=== PATIENT | female | born 1935 | race Caucasian/White ===

== ENCOUNTER 2021-10-07 20:54 | Inpatient (IN) | payer MEDICARE ==
[2021-10-07] MEDS ORDERED: Ondansetron ODT 4 MG TAB PO PRN (21:18)
[2021-10-07] MEDS ORDERED: hydrALAZINE 20 MG/ML VIAL SLOW IVP PRN (21:18)
[2021-10-07] MEDS ORDERED: Dextrose 50% Abboject 50 ML SYRINGE SLOW IVP PRN (21:18)
[2021-10-07] MEDS ORDERED: Promethazine HCl 25 MG/ML VIAL IM PRN (21:18)
[2021-10-07] MEDS ORDERED: Dextrose 5% in Water 1,000 ML IV PRN (21:18)
[2021-10-07] MEDS ORDERED: Ondansetron PF 4 MG/2 ML Vial IVP PRN (21:18)
[2021-10-07] MEDS ORDERED: Ibuprofen 800 MG TAB PO PRN (21:25)
[2021-10-07] MEDS ORDERED: traMADol HCl 50 MG TAB PO PRN ×2 (21:25)
[2021-10-07] MEDS ORDERED: Cyclobenzaprine 10 MG TAB PO PRN (21:25)
[2021-10-07] MEDS: Acetaminophen 325 MG TAB PO SCH (23:03)
[2021-10-07] MEDS: Sodium Chloride 0.9% 1,000 ML IV SCH (23:04)
[2021-10-08] MEDS: Acetaminophen 325 MG TAB PO SCH ×4 (04:24→20:32)
[2021-10-08 04:57] LABS: #Eosinphils 0.1 thou/uL (0.0-0.7); #Lymphocytes 1.9 thou/uL (1.20-3.40); #Neutrophils 6.8 thou/uL (1.40-6.50); %Basophils 0.2 % (0.0-1.0); %Eosinophils 0.9 % (0.0-10.0); %Lymphocytes 19.5 % (21.0-51.0); %Neutrophils 69.5 % (42.0-75.0); Hemoglobin 10.8 g/dL (12.0-16.0); Mean Corpuscular HGB CONC 33.9 g/dL (32.0-36.0); Mean Corpuscular Hemoglobin 32.3 pg (27.0-31.0); Mean Corpuscular Volume 95.4 fL (78.0-98.0); Mean Platelet Volume 7.7 fL (7.4-10.4); Platelet Count 183 thou/uL (130-400); RBC Distribution Width 12.2 % (11.5-14.5); Red Blood Cell (RBC) Count 3.33 mill/uL (4.20-5.40); White Blood Cell (WBC) Count 9.8 thou/uL (4.8-10.8)
[2021-10-08 05:24] LABS: Anion Gap 10 mmol/L (10-20); BUN (Urea Nitrogen) 17 mg/dL (9.8-20.1); Calc. Creatinine Clearance 47 mL/min (70-130); Calcium 8.4 mg/dL (7.8-10.44); Carbon Dioxide 24 mmol/L (23-31); Chloride 107 mmol/L (98-107); Glucose 96 mg/dL (83-110); Potassium 4.1 mmol/L (3.5-5.1); Sodium 137 mmol/L (136-145)
[2021-10-08] MEDS: Levothyroxine Sodium 50 MCG TAB PO SCH (05:43)
[2021-10-08] MEDS: Morphine 4 MG/ML VIAL SLOW IVP PRN ×2 (06:30→17:48)
[2021-10-08] MEDS: Sodium Chloride 0.9% 1,000 ML IV SCH (06:30)
[2021-10-08] MEDS: Famotidine 20 MG TAB PO SCH ×2 (08:41→20:33)
[2021-10-08] MEDS ORDERED: Lisinopril 10 MG TAB PO SCH (09:00)
[2021-10-08] MEDS: Amlodipine 5 MG TAB PO SCH (09:00)
[2021-10-08] MEDS ORDERED: Clindamycin/D5W 900 MG in Premix Bag 1 BAG IVPB SCH (10:30)
[2021-10-08] MEDS ORDERED: Levofloxacin 500 mg/D5W 100 ml Premix Bag ONE (14:09)
[2021-10-08] MEDS ORDERED: Clindamycin/D5W 900 mg/50 ml Premix Bag ONE (14:09)
[2021-10-08] MEDS ORDERED: Fentanyl 100 MCG/2 ML VIAL ONE ×2 (14:39→16:25)
[2021-10-08] MEDS ORDERED: Dexamethasone 20 MG/5 ML VIAL ONE (15:08)
[2021-10-08] MEDS ORDERED: Ondansetron PF 4 MG/2 ML Vial ONE (15:08)
[2021-10-08] MEDS ORDERED: Rocuronium Bromide 10 MG/ML (10ML VIAL) ONE (15:08)
[2021-10-08] MEDS ORDERED: PROPOFOL 200 MG/20 ML VIAL ONE (15:08)
[2021-10-08] MEDS ORDERED: Glycopyrrolate 0.2 MG/ML 5 ML SYRINGE ONE (15:08)
[2021-10-08] MEDS ORDERED: Ondansetron HCl/PF 4 MG/2 ML Vial IVP PRN (16:11)
[2021-10-08] MEDS ORDERED: Promethazine HCl 25 MG/ML VIAL IVPB PRN (16:11)
[2021-10-08] MEDS ORDERED: Promethazine HCl 25 MG/ML VIAL IM PRN (16:11)
[2021-10-08] MEDS ORDERED: Ketorolac Tromethamine 30 MG/ML VIAL IVP PRN (16:11)
[2021-10-08] MEDS: Simvastatin 10 MG TAB PO SCH (20:33)
[2021-10-08] MEDS: Clindamycin/D5W 900 MG in Premix Bag 1 BAG IVPB SCH (20:43)
[2021-10-09] MEDS: Acetaminophen 325 MG TAB PO SCH ×4 (03:34→19:36)
[2021-10-09] MEDS: Levothyroxine Sodium 50 MCG TAB PO SCH (03:34)
[2021-10-09 04:53] LABS: #Lymphocytes 0.8 thou/uL (1.20-3.40); #Neutrophils 9.3 thou/uL (1.40-6.50); %Basophils 0.1 % (0.0-1.0); %Eosinophils 0.1 % (0.0-10.0); %Lymphocytes 7.4 % (21.0-51.0); %Monocytes 8.7 % (0.0-10.0); %Neutrophils 83.7 % (42.0-75.0); Hemoglobin 9.5 g/dL (12.0-16.0); Mean Corpuscular HGB CONC 34.5 g/dL (32.0-36.0); Mean Corpuscular Hemoglobin 32.7 pg (27.0-31.0); Mean Corpuscular Volume 94.9 fL (78.0-98.0); Mean Platelet Volume 7.7 fL (7.4-10.4); Platelet Count 170 thou/uL (130-400); RBC Distribution Width 11.9 % (11.5-14.5); Red Blood Cell (RBC) Count 2.91 mill/uL (4.20-5.40); White Blood Cell (WBC) Count 11.2 thou/uL (4.8-10.8)
[2021-10-09 05:15] LABS: Anion Gap 13 mmol/L (10-20); BUN (Urea Nitrogen) 12 mg/dL (9.8-20.1); Calc. Creatinine Clearance 43 mL/min (70-130); Calcium 8.7 mg/dL (7.8-10.44); Carbon Dioxide 21 mmol/L (23-31); Chloride 104 mmol/L (98-107); Glucose 128 mg/dL (83-110); Magnesium 1.7 mg/dL (1.6-2.6); Phosphorus 3.9 mg/dL (2.3-4.7); Potassium 4.5 mmol/L (3.5-5.1); Sodium 133 mmol/L (136-145)
[2021-10-09] MEDS: Clindamycin/D5W 900 MG in Premix Bag 1 BAG IVPB SCH (05:48)
[2021-10-09] MEDS ORDERED: Magnesium 2 GM/50 ML 2 GM in Premix Bag 1 BAG IVPB SCH (07:40)
[2021-10-09] MEDS: Amlodipine 5 MG TAB PO SCH (08:26)
[2021-10-09] MEDS: Aspirin 81 mg Enteric Coated Tablet PO SCH ×2 (08:26→19:37)
[2021-10-09] MEDS: Famotidine 20 MG TAB PO SCH (08:27)
[2021-10-09] MEDS ORDERED: Lisinopril 10 MG TAB PO SCH (09:00)
[2021-10-09] MEDS: Simvastatin 10 MG TAB PO SCH (19:37)
[2021-10-10] MEDS: Acetaminophen 325 MG TAB PO SCH ×2 (03:29→10:20)
[2021-10-10] MEDS: Levothyroxine Sodium 50 MCG TAB PO SCH (06:18)
[2021-10-10 06:19] LABS: #Basophils 0.1 thou/uL (0.0-0.2); #Eosinphils 0.1 thou/uL (0.0-0.7); #Lymphocytes 1.9 thou/uL (1.20-3.40); #Monocytes 0.8 thou/uL (0.11-0.59); #Neutrophils 6.1 thou/uL (1.40-6.50); %Basophils 0.6 % (0.0-1.0); %Eosinophils 1.6 % (0.0-10.0); %Lymphocytes 21.4 % (21.0-51.0); %Monocytes 8.6 % (0.0-10.0); %Neutrophils 67.8 % (42.0-75.0); Hemoglobin 8.3 g/dL (12.0-16.0); Mean Corpuscular HGB CONC 32.7 g/dL (32.0-36.0); Mean Corpuscular Hemoglobin 31.5 pg (27.0-31.0); Mean Corpuscular Volume 96.1 fL (78.0-98.0); Mean Platelet Volume 7.5 fL (7.4-10.4); Platelet Count 164 thou/uL (130-400); Red Blood Cell (RBC) Count 2.65 mill/uL (4.20-5.40)
[2021-10-10 07:03] LABS: Anion Gap 10 mmol/L (10-20); BUN (Urea Nitrogen) 21 mg/dL (9.8-20.1); Calc. Creatinine Clearance 41 mL/min (70-130); Calcium 8.4 mg/dL (7.8-10.44); Carbon Dioxide 27 mmol/L (23-31); Chloride 104 mmol/L (98-107); Glucose 100 mg/dL (83-110); Magnesium 1.9 mg/dL (1.6-2.6); Phosphorus 2.9 mg/dL (2.3-4.7); Sodium 137 mmol/L (136-145)
[2021-10-10] MEDS: Aspirin 81 mg Enteric Coated Tablet PO SCH (10:19)
[2021-10-10] MEDS: Amlodipine 5 MG TAB PO SCH (10:20)
[2021-10-10] MEDS: Famotidine 20 MG TAB PO SCH (10:21)
[2021-10-10 12:08] VITALS: BP 118/63; TEMP 97.8
== END 2021-10-10 15:15 | DRG 482 ==
LOC: 2NO 20:54 → SURG A 10-09 20:45
PROVIDERS: ADMIT Specialist; ATTEND Surgery
PROC: 0QH736Z Insertion of Intramedullary Internal Fixation Device into Left Upper Femur, Percutaneous Approach (ICD-10-PCS; principal; 2021-10-08)
DX: S72.141A Displaced intertrochanteric fracture of right femur, initial encounter for closed fracture (principal); Z20.822 Contact with and (suspected) exposure to COVID-19; I10 Essential (primary) hypertension; E03.9 Hypothyroidism, unspecified; W07.XXXA Fall from chair, initial encounter; Z88.0 Allergy status to penicillin; Z88.1 Allergy status to other antibiotic agents; Z79.890 Hormone replacement therapy; Z79.899 Other long term (current) drug therapy; Z90.710 Acquired absence of both cervix and uterus
CPT/HCPCS: 36415; 70450; 71045; 71275; 72170; 76000; 80048; 80053; 82550; 83605; 83735; 84100; 84484; 85025; 85379; 90715; 93005; 93306; 93880; 96374; 96376; C1713; J1100; J1956; J2270; J2405; J2704; J3010; J3475; J3490; J7050; U0002